=== PATIENT | male | born 1955 | race Caucasian/White ===

== ENCOUNTER 2020-09-30 06:04 | Day surgery (SDC) | payer OTHER ==
[~2020-09-30] VITALS: Ht 175.3 cm; Wt 72.6 kg
[~2020-09-30 06:04] MED LIST: ACEB400C PO; AMLO10TA4 PO; ASPI-630 PO; EZET10TA20 PO; HYDR-2761 PO; MULT-245 PO; OLME40TA12 PO; PROCHLORPERAZINE 10 MG/2 ML VIAL. IVP PRN; TRIA1TAB2 PO; ceFAZolin SODIUM IV Push 1 GM VIAL. IVP PRN; fentaNYL PF VIAL 100 MCG/2 ML VIAL IVP PRN
[2020-09-30] MEDS ORDERED: SEVOFLURANE 61 TO 120 MINUTES. IH ONE ×2 (06:41→07:56)
[2020-09-30] MEDS ORDERED: LIDOCAINE 2% PF 5 ML VIAL. ONE (06:42)
[2020-09-30] MEDS ORDERED: DEXAMETHASONE SOD PHOS 4 MG/ML VIAL ONE (06:42)
[2020-09-30] MEDS ORDERED: ONDANSETRON PF 4 MG/2 ML VIAL. ONE (06:42)
[2020-09-30] MEDS ORDERED: PROPOFOL 10 MG/ML (20ML) VIAL. IV ONE (06:42)
[2020-09-30] MEDS ORDERED: KETOROLAC 30 MG/ML VIAL. ONE (06:42)
[2020-09-30] MEDS: IV RINGERS,LACTATED 1000ML 1,000 ML IV SCH ×2 (06:46→07:44)
[2020-09-30] MEDS ORDERED: fentaNYL PF VIAL 100 MCG/2 ML VIAL ONE ×2 (07:03→07:57)
[2020-09-30] MEDS ORDERED: BUPIVACAINE-EPI 0.5% 30 ML VIAL KIT. ONE ×2 (07:13→09:19)
[2020-09-30] MEDS ORDERED: HYDROmorphone 2 MG/ML VIAL ONE ×2 (08:19→09:11)
[2020-09-30] MEDS ORDERED: MORPHINE SULFATE 2 MG/ML VIAL. ONE (08:59)
[2020-09-30] MEDS: MORPHINE SULFATE 2 MG/ML VIAL. IVP PRN ×2 (09:01→09:14)
[2020-09-30] MEDS: HYDROmorphone 2 MG/ML VIAL IVP PRN ×4 (09:14→09:47)
[2020-09-30] MEDS ORDERED: OXYC1TAB19 PO (09:18)
[2020-09-30] MEDS ORDERED: LIDOCAINE 1% PF 2 ML VIAL. ONE (09:19)
--- NOTE | 2020-09-30 09:21 | DISCH ---
DISCHARGE INSTRUCTIONS Condition on Discharge Condition on Discharge: Stable Activity After Discharge Activity Instructions for Disc: Other, see below (keep brace locked in exte nsion for walking or transfers, may remove for laying/sitting) Weight Bearing Status after Di: As tolerated Diet after Discharge Diet after Discharge: Regular Wound Incision Care Wound/Incision Care: Change dressing (may remove dressings in 4 days, wrap with saran wrap for shower if no drainage, no soaking) Contacting the [facility] after DC Call your doctor for: Concerns you may have Follow-Up Follow up with: Dr. Alex or Cheli 2 weeks ANURAG ALEX MD Sep 30, 2020 09:21
[2020-09-30 10:09] VITALS: BP 146/52
[2020-09-30] MEDS ORDERED: oxyCODONE/APAP 7.5/325 1 TAB TABLET PO ONE ×2 (10:30)
--- NOTE | 2020-09-30 15:34 | PDOC4 ---
Operative Note Operative Note Date of surgery: 09/30/2020 Preoperative diagnosis: Left quadriceps tendon rupture Postoperative diagnosis: Same Operative procedure: Left quadriceps tendon rupture repair Surgeon: Abi Banquet Food Server: Amrit donahue Anesthesia: General Estimated blood loss: 50 cc Complications: None Operative indications: Please see my orthopedic clinic note for detailed operative indications and note that we had covered risks of infection possible nonhealing stiffness nerve or blood vessel damage medical or other anesthetic complications continued pain among others all his questions were answered he wishes to proceed with surgical evaluation and treatment. Operative text: Patient was identified procedure verified patient placed in the supine position on the operating table. After adequate amounts of general anesthesia were administered the left lower extremity was prepped and draped in the standard sterile fashion with a thigh tourniquet. After timeout was performed patient procedure identified and verified the left lower extremity was exsanguinated by Esmarch bandage tourniquet inflated to 250 mmHg a midline incision was made and the full-thickness quadriceps rupture was identified from the superior aspect of the patella. The calcified area visualized on x-ray was excised to allow apposition to good tendon tissue. Superior aspect of the patella was debrided back to stable bleeding bony tissue and a total of 3 holes were drilled longitudinally. Thorough irrigation was carried out with normal saline solution and then #5 max braid sutures were placed in a grasping fashion to allow a total of 6 strands across the repair and total placed both from the middle to the medial and lateral holes respectively and from the medial to lateral hole and sutures were matched up threaded through and tied over the distal patella onto bone avoiding any compromise of the patellar tendon. Excellent apposition was noted and the retinaculum was further closed with #1 Vicryl in a running fashion to close the retinaculum and joint capsule. He was noted to have good apposition of the repair and was able to flex about 0 to 30 degrees without significant tension. Subcutaneous closure accomplished with buried Vicryl suture skin closure with christina sterile compressive dressings were placed followed by a postop knee brace that was locked in extension. Toes were noted to be warm pink following deflation of the tourniquet patient was returned to recovery room stable condition having tolerated procedure well. Amrit donahue was present for the procedure assisted in patient prepping draping retraction closure dressings and brace placement ANURAG JULIO MD Sep 30, 2020 15:34
== END 2020-09-30 10:45 | disposition home or self-care (01) ==
LOC: SURG 06:04
PROVIDERS: ATTEND Orthopaedic Surgery
DX: S76.112A Strain of left quadriceps muscle, fascia and tendon, initial encounter (principal); E78.00 Pure hypercholesterolemia, unspecified; I10 Essential (primary) hypertension; M19.90 Unspecified osteoarthritis, unspecified site; Z79.82 Long term (current) use of aspirin; Z79.899 Other long term (current) drug therapy; Z98.890 Other specified postprocedural states; Z72.89 Other problems related to lifestyle; X58.XXXA Exposure to other specified factors, initial encounter; Y93.89 Activity, other specified; Y92.89 Other specified places as the place of occurrence of the external cause; Y99.8 Other external cause status
CPT/HCPCS: 27385; A4930; A6253; A6402; A6449; A6450; J0690; J1100; J1170; J1885; J2270; J2405; J2704; J3010; J3490